=== PATIENT | female | born 1975 | race African-American/Black ===

== ENCOUNTER 2020-08-11 18:30 | Inpatient (IN) ==
[2020-08-11] MEDS ORDERED: ONDANSETRON 4 MG/2 ML VIAL IV STA (18:53)
[2020-08-11] MEDS ORDERED: SODIUM CHLORIDE 0.9% 1,000 ML IV STA (18:53)
[2020-08-11] MEDS ORDERED: MORPHINE 4 MG/1 ML VIAL IV STA (18:53)
[2020-08-11 19:19] LABS: Basophils % 0.2 % (0.0-0.8); Hematocrit 38.4 VOL% (35.7-47.0); Hemoglobin 12.4 GM/DL (12.0-16.0); Immature Granulocytes % 0.3 %; Immature Granulocytes Absolute 0.04 #; Lymphocytes # 1.1 10*3/uL (1.4-4.0); Mean Corpuscular HGB Conc 32.3 GM/DL (32-36); Mean Corpuscular Volume 72.7 FL (87-102); Mean Platelet Volume 9.3 FL (9.6-12.0); Monocytes % 6.1 % (1.7-12.7); Neutrophils % 84.4 % (38.7-73.9); Platelet Count 214 T/CUMM (130-400); Red Blood Count 5.28 MC/CUMM (3.8-5.5); Red Cell Distribution Width 15.3 % (9.3-17.3); White Blood Count 12.4 T/CUMM (4-12)
[2020-08-11 19:32] LABS: Albumin 3.8 G/DL (3.4-5.0); Bilirubin,Total 0.7 MG/DL (0.2-1.0); Calcium 8.5 MG/DL (8.5-10.1); Osmolality,Calculated 267.2 MOS/KG (273-304)
[2020-08-11 19:49] LABS: Bilirubin,Urine Negative (Negative); Blood, Urine Negative (Negative); Glucose,Urine (UA) Negative (Negative); Ketones,Urine 20 mg/dL (Negative); Mucus,Urine Many /LPF (Occasional); Nitrite,Urine Negative (Negative); Protein,Urine 100 MG/DL; RBC,Urine 5 /HPF (0-4); Squamous Epithelial Cell,Urine Occasional /HPF (0-10); Urine Appearance CLEAR (Clear); Urine Color Yellow (Yellow); Urine Specific Gravity 1.033 (1.001-1.035); Urine Urobilinogen < 2.0 EU/DL (0.2-1.0); WBC,Urine 11 /HPF (0-6)
[2020-08-11] MEDS ORDERED: PIPERACILLIN/TAZOBACTAM 3,375 MG in SODIUM CHLORIDE 0.9% 100 ML IV STA (20:41)
[2020-08-11] MEDS ORDERED: ONDANSETRON 4 MG/2 ML VIAL IV PRN (20:46)
[2020-08-11 21:10] LABS: PT Patient Result 11.2 SECS (9.8-11.9); Partial Thromboplastin Time 27.6 SECS (23.9-33.8)
[2020-08-11] MEDS: DEXTROSE 5% NACL 0.45% 1,000 ML IV SCH (22:51)
[2020-08-11] MEDS: MORPHINE 4 MG/1 ML VIAL IV PRN (23:19)
[2020-08-12] MEDS: metroNIDAZOLE INJ 500 MG in PREMIX 1 EACH IV SCH ×2 (01:51→10:44)
[2020-08-12] MEDS: MORPHINE 4 MG/1 ML VIAL IV PRN ×2 (03:55→19:43)
[2020-08-12] MEDS: PIPERACILLIN/TAZOBACTAM 3,375 MG in SODIUM CHLORIDE 0.9% 100 ML IV SCH ×4 (04:57→16:06)
[2020-08-12 06:02] LABS: Basophils % 0.2 % (0.0-0.8); Eosinophils % 0.1 % (0.00-10.9); Hematocrit 32.7 VOL% (35.7-47.0); Hemoglobin 10.5 GM/DL (12.0-16.0); Immature Granulocytes % 0.5 %; Immature Granulocytes Absolute 0.06 #; Lymphocytes # 1.2 10*3/uL (1.4-4.0); Lymphocytes % 10.4 % (21.3-54.2); Mean Corpuscular HGB Conc 32.1 GM/DL (32-36); Mean Corpuscular Volume 72.3 FL (87-102); Mean Platelet Volume 9.6 FL (9.6-12.0); Monocytes % 7.5 % (1.7-12.7); Neutrophils % 81.3 % (38.7-73.9); Platelet Count 189 T/CUMM (130-400); Red Blood Count 4.52 MC/CUMM (3.8-5.5); Red Cell Distribution Width 15.3 % (9.3-17.3); White Blood Count 11.5 T/CUMM (4-12)
[2020-08-12 06:18] LABS: Alanine Aminotransferase < 9 U/L (13-56); Albumin 2.9 G/DL (3.4-5.0); Alkaline Phosphatase 49 U/L (45-117); Aspartate Amino Transferase 14 U/L (0-37); Blood Urea Nitrogen 6 MG/DL (7-18); Calcium 7.6 MG/DL (8.5-10.1); Estimated Glom Filtration Rate 124 ML/MIN; Glucose 94 MG/DL (74-106); Total Protein 6.4 G/DL (6.4-8.3)
[2020-08-12] MEDS: PANTOPRAZOLE 40 MG VIAL IV SCH (10:45)
[2020-08-12] MEDS ORDERED: MIDAZOLAM 2 MG/2 ML VIAL IV ONE (10:49)
[2020-08-12] MEDS ORDERED: fentaNYL 100 MCG/2 ML VIAL IV ONE (10:49)
[2020-08-12] MEDS ORDERED: DIAZEPAM 5 MG TABLET PO ONE (10:55)
[2020-08-12] MEDS: POTASSIUM CHLORIDE RIDER 10 MEQ in PREMIX 1 EACH IV PRN ×4 (11:54→21:54)
[2020-08-12] MEDS: DEXTROSE 5% NACL 0.45% 1,000 ML IV SCH (11:58)
[2020-08-13] MEDS: PIPERACILLIN/TAZOBACTAM 3,375 MG in SODIUM CHLORIDE 0.9% 100 ML IV SCH ×3 (00:05→17:54)
[2020-08-13] MEDS: DEXTROSE 5% NACL 0.45% 1,000 ML IV SCH ×2 (07:35→17:08)
[2020-08-13] MEDS: PANTOPRAZOLE 40 MG VIAL IV SCH (10:02)
[2020-08-13] MEDS: MORPHINE 4 MG/1 ML VIAL IV PRN ×2 (10:46→21:54)
[2020-08-13] MEDS: SODIUM CHLORIDE 0.45% 1,000 ML IV SCH (17:08)
[2020-08-13] MEDS ORDERED: MAGNESIUM HYDROXIDE SUSP 30 ML UDCUP PO PRN (20:30)
[2020-08-14] MEDS: PIPERACILLIN/TAZOBACTAM 3,375 MG in SODIUM CHLORIDE 0.9% 100 ML IV SCH ×4 (00:15→23:55)
[2020-08-14] MEDS: DEXTROSE 5% NACL 0.45% 1,000 ML IV SCH ×2 (00:20→10:09)
[2020-08-14] MEDS: PANTOPRAZOLE 40 MG VIAL IV SCH (09:58)
[2020-08-14] MEDS: SODIUM CHLORIDE 0.45% 1,000 ML IV SCH (10:08)
[2020-08-14] MEDS: MORPHINE 4 MG/1 ML VIAL IV PRN (13:39)
[2020-08-14] MEDS: POLYETHYLENE GLYCOL POWDER 17 GM PACK PO SCH (16:38)
[2020-08-14] MEDS: BISACODYL 10 MG SUPP RECTAL SCH ×2 (16:38→23:55)
[2020-08-15] MEDS: DEXTROSE 5% NACL 0.45% 1,000 ML IV SCH ×3 (02:05→12:26)
[2020-08-15] MEDS: POLYETHYLENE GLYCOL POWDER 17 GM PACK PO SCH (10:28)
[2020-08-15] MEDS: PANTOPRAZOLE 40 MG VIAL IV SCH (10:28)
[2020-08-15] MEDS: SODIUM CHLORIDE 0.45% 1,000 ML IV SCH (10:28)
[2020-08-15] MEDS: PIPERACILLIN/TAZOBACTAM 3,375 MG in SODIUM CHLORIDE 0.9% 100 ML IV SCH (10:31)
[2020-08-15 11:26] VITALS: BP 127/72
[2020-08-15] MEDS: BISACODYL 10 MG SUPP RECTAL SCH (12:28)
== END 2020-08-15 14:20 | disposition home or self-care (01) | DRG 759 ==
LOC: N.EDINP 18:30 → N.ED 18:30 → N.3E 21:07
PROVIDERS: ADMIT Surgery; ATTEND Surgery